=== PATIENT | female | born 2000 | race Caucasian/White ===

== ENCOUNTER 2020-04-30 02:32 | Emergency (ER) | payer OTHER ==
[2020-04-30 02:44] VITALS: BP 111/72; PULSE 95; RESP 18; TEMP 100.1
[2020-04-30 03:17] LABS: Appearance,Urine Turbid (Clear); Bacteria,Urine Occasional /hpf; Bilirubin,Urine 1+ (Negative); Blood,Urine Large (Negative); Color,Urine Dark Brown; Glucose,Urine (UA) Negative (Negative); Ketones,Urine Negative (Negative); Leukocyte Esterase,Urine Large (Negative); Mucus,Urine Few /hpf; Nitrite,Urine Positive (Negative); Protein,Urine 2+ (Negative); RBC,Urine >182 /hpf (0-5); Squamous Epithelial Cell,Urine 2 /hpf (0-4); WBC,Urine >182 /hpf (0-5)
[2020-04-30] MEDS ORDERED: NITROFURANTOIN MONOHYD/M-CRYST 100 MG CAP PO STA (03:38)
[2020-04-30] MEDS ORDERED: CEPHALEXIN 500MG STARTER PACK 4 CAP BTL PO STA (03:39)
--- NOTE | 2020-04-30 03:42 | ED ---
Female Urogenital HPI - General Chief complaint: Urogenital Stated complaint: UTI Time Seen by Provider: 04/30/20 02:55 Source: patient Mode of arrival: ambulatory Limitations: no limitations - History of Present Illness Initial comments: Daniella a previously healthy 19-year-old female presents the ER today via private vehicle for evaluation of 3 days of dysuria, urinary frequency and low grade fever. Patient denies any history of recurrent UTIs. Denies any concern for sexual transmitted infection or . States she's been taking [id number] Azo for symptoms of some improvement but her fever persists which prompted her to come the ER today. - Related Data Previous Rx's Medication Instructions Recorded Cephalexin [Keflex] 500 mg PO Q6HR 7 Days #28 cap 04/30/20 Allergies Allergy/AdvReac Type Severity Reaction Status Date / Time No Known Allergies Allergy Verified 04/30/20 02:44 Review of Systems ROS Statement: Those systems with pertinent positive or pertinent negative responses have been documented in the HPI. ROS Other: All systems not noted in ROS Statement are negative. Past Medical History Past Medical History: No Reported History History of Any Multi-Drug Resistant Organisms: None Reported Past Surgical History: No Surgical Hx Reported Past Psychological History: No Psychological Hx Reported Smoking Status: Never smoker Past Alcohol Use History: Occasional Past Drug Use History: None Reported General Exam - General Exam Comments Initial Comments: Physical Exam GENERAL: Patient is well-developed and well-nourished. Patient is nontoxic and well-hydrated and is in no distress. HENT: Normocephalic, Atraumatic. EYES: PERRL, EOMI PULMONARY: Unlabored respirations. CARDIOVASCULAR: RRR Warm and well perfused extremities ABDOMEN: Non-distended SKIN: No rashes or bruising : Deferred NEUROLOGIC: Alert and oriented Normal speech Normal gait MUSCULOSKELETAL: Moving all extremities with no apparent injury PSYCHIATRIC: No SI/HI Limitations: no limitations Course Vital Signs 04/30/20 02:39 Temperature 100.1 F H Pulse Rate 95 Respiratory 18 Rate Blood Pressure 111/72 O2 Sat by Pulse 99 Oximetry Medical Decision Making - Medical Decision Making the patient was seen and evaluated history is obtained from patient Patient's tolerating oral intake drinking water here in the ER declined an IV agreeable to urinalysis with plan for antibiotics She does have a fever and flank pain but is well-appearing does not appear septic Urinalysis confirms a urinary tract infection not First dose of Keflex given in the ER patient prescribed 7 days of Keflex 500 4 times daily - Lab Data Lab Results 04/30/20 04/30/20 Range/Units 02:50 02:54 Urine Color Dark Brown Urine Appearance Turbid H (Clear) Urine pH 6.0 (5.0-8.0) Ur Specific [place] 1.020 (1.001-1.035) Urine Protein 2+ H (Negative) Urine Glucose (UA) Negative (Negative) Urine Ketones Negative (Negative) Urine Blood Large H (Negative) Urine Nitrite Positive H (Negative) Urine Bilirubin 1+ H (Negative) Urine Urobilinogen 3.0 (<2.0) mg/dL Ur Leukocyte Esterase Large H (Negative) Urine RBC >182 H (0-5) /hpf Urine WBC >182 H (0-5) /hpf Urine WBC Clumps Many H (None) /hpf Ur Squamous Epith Cells 2 (0-4) /hpf Urine Bacteria Occasional H (None) /hpf Urine Mucus Few H (None) /hpf Urine HCG, Qual Not Detected (Not Detectd) Disposition Clinical Impression: Urinary tract infection Disposition: HOME SELF-CARE Condition: Stable Additional Instructions: As we discussed you have a urinary tract infection You will be prescribed Keflex, take it every 6h for 7 days Take all of the antibiotics, even if you are feeling better You can continue taking Azo for symptoms Drink plenty of fluids Return to the ER if you feel any worse, have a fever that wont break with fluids and tylenol/motrin, if you're vomiting and cant keep down any antibiotics or fluids Prescriptions: Cephalexin [Keflex] 500 mg PO Q6HR 7 Days #28 cap Is patient prescribed a controlled substance at d/c from ED?: No Referrals: None,Stated [Primary Care Provider] - 1-2 days
== END 2020-04-30 03:47 | disposition home or self-care (01) ==
LOC: EC 02:32
DX: N39.0 Urinary tract infection, site not specified (principal)
CPT/HCPCS: 81001; 81025; 87086; 99283

== ENCOUNTER 2021-07-20 22:56 | Emergency (ER) | payer OTHER ==
[2021-07-20 23:01] VITALS: BP 112/73; PULSE 90; RESP 20; TEMP 98.1
[2021-07-20] MEDS ORDERED: ACETAMINOPHEN TAB 500 MG TAB PO STA (23:12)
[2021-07-20] MEDS ORDERED: SODIUM CHLORIDE 0.9% 500 ML 500 ML IV ONE (23:12)
--- NOTE | 2021-07-20 23:13 | ED ---
Female Urogenital HPI - General Chief complaint: Abdominal Pain Stated complaint: Abdominal Cramping, 12wks pgt Time Seen by Provider: 07/20/21 23:11 Source: patient, RN notes reviewed, old records reviewed Mode of arrival: ambulatory Limitations: no limitations - History of Present Illness Initial comments: This is a 20-year-old female to the emergency department for evaluation with a positive currently. Patient is complaining of abdominal pain recently started 2 hours prior to ER visit. Patient states the pain is crampy in nature and significant. Has not had pain like this prior denies any vaginal bleeding other complaints. MD Complaint: pelvic pain -: days(s) Location: suprapubic Radiation: suprapubic Severity: mild Severity scale (1-10): 3 Quality: cramping Consistency: constant Improves with: none Worsens with: none Last Menstrual Period: 04/29/21 Patient : Yes Associated Symptoms: abdominal pain - Related Data Previous Rx's Medication Instructions Recorded cephALEXin [Keflex] 500 mg PO Q6HR 7 Days #28 cap 04/30/20 Allergies Allergy/AdvReac Type Severity Reaction Status Date / Time No Known Allergies Allergy Verified 07/20/21 23:00 Review of Systems ROS Statement: Those systems with pertinent positive or pertinent negative responses have been documented in the HPI. ROS Other: All systems not noted in ROS Statement are negative. Past Medical History Past Medical History: No Reported History History of Any Multi-Drug Resistant Organisms: None Reported Past Surgical History: No Surgical Hx Reported Past Psychological History: No Psychological Hx Reported Smoking Status: Never smoker Past Alcohol Use History: Occasional Past Drug Use History: None Reported General Exam Limitations: no limitations General appearance: alert, in no apparent distress Head exam: Present: atraumatic, normocephalic, normal inspection Eye exam: Present: normal appearance, PERRL, EOMI. Absent: scleral icterus, conjunctival injection, periorbital swelling ENT exam: Present: normal exam, mucous membranes moist Neck exam: Present: normal inspection. Absent: tenderness, meningismus, lymphadenopathy Respiratory exam: Present: normal lung sounds bilaterally. Absent: respiratory distress, wheezes, rales, rhonchi, stridor Cardiovascular Exam: Present: regular rate, normal rhythm, normal heart sounds. Absent: systolic murmur, diastolic murmur, rubs, gallop, clicks GI/Abdominal exam: Present: soft, tenderness ((Pubic), normal bowel sounds. Absent: distended, guarding, rebound, rigid Extremities exam: Present: normal inspection, full ROM, normal capillary refill. Absent: tenderness, pedal edema, joint swelling, calf tenderness Back exam: Present: normal inspection Neurological exam: Present: alert, oriented X3, CN II-XII intact Psychiatric exam: Present: normal affect, normal mood Skin exam: Present: warm, dry, intact, normal color. Absent: rash Course Vital Signs 07/20/21 22:58 Temperature 98.1 F Pulse Rate 90 Respiratory 20 Rate Blood Pressure 112/73 O2 Sat by Pulse 99 Oximetry - Reevaluation(s) Reevaluation #1: Medical record is reviewed Symptoms improved here in the ER Patient informed results and questions answered Medical Decision Making - Medical Decision Making 20 female with abdominal pain affecting . Patient has ultrasound showing IUP, no bleeding. Patient can be discharged home - Lab Data Result diagrams: 07/20/21 23:20 07/20/21 23:20 Lab Results 07/20/21 07/20/21 07/20/21 Range/Units 23:18 23:18 23:20 WBC 10.6 (3.8-10.6) k/uL RBC 3.68 L (3.80-5.40) m/uL Hgb 11.9 (11.4-16.0) gm/dL Hct 33.4 L (34.0-46.0) % MCV 90.8 (80.0-100.0) fL MCH 32.4 (25.0-35.0) pg MCHC 35.7 (31.0-37.0) g/dL RDW 12.1 (11.5-15.5) % Plt Count 230 (150-450) k/uL MPV 8.0 Neutrophils % 64 % Lymphocytes % 27 % Monocytes % 6 % Eosinophils % 1 % Basophils % 1 % Neutrophils # 6.8 (1.3-7.7) k/uL Lymphocytes # 2.9 (1.0-4.8) k/uL Monocytes # 0.6 (0-1.0) k/uL Eosinophils # 0.1 (0-0.7) k/uL Basophils # 0.1 (0-0.2) k/uL PT (9.0-12.0) sec INR (<1.2) APTT (22.0-30.0) sec Sodium (137-145) mmol/L Potassium (3.5-5.1) mmol/L Chloride (98-107) mmol/L Carbon Dioxide (22-30) mmol/L Anion Gap mmol/L BUN (7-17) mg/dL Creatinine (0.52-1.04) mg/dL Est GFR (CKD-EPI)AfAm (>60 ml/min/1.73 sqM) Est GFR (CKD-EPI)NonAf (>60 ml/min/1.73 sqM) Glucose (74-99) mg/dL Calcium (8.4-10.2) mg/dL HCG, Quant mIU/mL Urine Color Yellow Urine Appearance Clear (Clear) Urine pH 5.5 (5.0-8.0) Ur Specific [place] 1.022 (1.001-1.035) Urine Protein Trace H (Negative) Urine Glucose (UA) Negative (Negative) Urine Ketones Negative (Negative) Urine Blood Negative (Negative) Urine Nitrite Negative (Negative) Urine Bilirubin Negative (Negative) Urine Urobilinogen <2.0 (<2.0) mg/dL Ur Leukocyte Esterase Negative (Negative) Chlamydia Source Urine Chlamydia DNA (PCR) Negative (Neg,Equiv) N. gonorrhoeae Source Urine N.gonorrhoeae DNA Probe Negative (Neg,Equiv) Blood Type Blood Type Recheck Bld Type Recheck Status 07/20/21 07/20/21 07/20/21 Range/Units 23:20 23:20 23:20 WBC (3.8-10.6) k/uL RBC (3.80-5.40) m/uL Hgb (11.4-16.0) gm/dL Hct (34.0-46.0) % MCV (80.0-100.0) fL MCH (25.0-35.0) pg MCHC (31.0-37.0) g/dL RDW (11.5-15.5) % Plt Count (150-450) k/uL MPV Neutrophils % % Lymphocytes % % Monocytes % % Eosinophils % % Basophils % % Neutrophils # (1.3-7.7) k/uL Lymphocytes # (1.0-4.8) k/uL Monocytes # (0-1.0) k/uL Eosinophils # (0-0.7) k/uL Basophils # (0-0.2) k/uL PT 9.9 (9.0-12.0) sec INR 0.9 (<1.2) APTT 23.7 (22.0-30.0) sec Sodium 134 L (137-145) mmol/L Potassium 3.7 (3.5-5.1) mmol/L Chloride 107 (98-107) mmol/L Carbon Dioxide 21 L (22-30) mmol/L Anion Gap 6 mmol/L BUN 9 (7-17) mg/dL Creatinine 0.50 L (0.52-1.04) mg/dL Est GFR (CKD-EPI)AfAm >90 (>60 ml/min/1.73 sqM) Est GFR (CKD-EPI)NonAf >90 (>60 ml/min/1.73 sqM) Glucose 94 (74-99) mg/dL Calcium 9.1 (8.4-10.2) mg/dL HCG, Quant 02565.6 mIU/mL Urine Color Urine Appearance (Clear) Urine pH (5.0-8.0) Ur Specific [place] (1.001-1.035) Urine Protein (Negative) Urine Glucose (UA) (Negative) Urine Ketones (Negative) Urine Blood (Negative) Urine Nitrite (Negative) Urine Bilirubin (Negative) Urine Urobilinogen (<2.0) mg/dL Ur Leukocyte Esterase (Negative) Chlamydia Source Chlamydia DNA (PCR) (Neg,Equiv) N. gonorrhoeae Source N.gonorrhoeae DNA Probe (Neg,Equiv) Blood Type A Positive Blood Type Recheck No Previous Record Bld Type Recheck Status [facility] ONLY Disposition Clinical Impression: Abdominal pain, Abdominal pain affecting Disposition: HOME SELF-CARE Condition: Good Instructions (If sedation given, give patient instructions): Abdominal Pain in (ED) Is patient prescribed a controlled substance at d/c from ED?: No Referrals: None,Stated [Primary Care Provider] - 1-2 days
[2021-07-20 23:44] LABS: Basophils # (A) 0.1 k/uL (0-0.2); Basophils % (A) 1 %; Eosinophils # (A) 0.1 k/uL (0-0.7); Eosinophils % (A) 1 %; HCT 33.4 % (34.0-46.0); HGB 11.9 gm/dL (11.4-16.0); Lymphocytes # (A) 2.9 k/uL (1.0-4.8); Lymphocytes % (A) 27 %; MCH 32.4 pg (25.0-35.0); MCHC 35.7 g/dL (31.0-37.0); MCV 90.8 fL (80.0-100.0); Monocytes # (A) 0.6 k/uL (0-1.0); Monocytes % (A) 6 %; Neutrophils # (A) 6.8 k/uL (1.3-7.7); Neutrophils % (A) 64 %; Platelet Count 230 k/uL (150-450); RBC 3.68 m/uL (3.80-5.40); RDW 12.1 % (11.5-15.5); WBC 10.6 k/uL (3.8-10.6)
[2021-07-20 23:48] LABS: Appearance,Urine Clear (Clear); Bilirubin,Urine Negative (Negative); Blood,Urine Negative (Negative); Color,Urine Yellow; Glucose,Urine (UA) Negative (Negative); Ketones,Urine Negative (Negative); Leukocyte Esterase,Urine Negative (Negative); Nitrite,Urine Negative (Negative); PH, Urine 5.5 (5.0-8.0); Protein,Urine Trace (Negative); Specific Gravity,Urine 1.022 (1.001-1.035); Urobilinogen,Urine <2.0 mg/dL (<2.0)
[2021-07-20 23:51] LABS: African American GFR (CKD) >90 (>60 ml/min/1.73 sqM); Anion Gap 6 mmol/L; Blood Urea Nitrogen 9 mg/dL (7-17); Calcium 9.1 mg/dL (8.4-10.2); Carbon Dioxide 21 mmol/L (22-30); Chloride 107 mmol/L (98-107); Glucose 94 mg/dL (74-99); Non-African American GFR(CKD) >90 (>60 ml/min/1.73 sqM); Potassium 3.7 mmol/L (3.5-5.1); Sodium 134 mmol/L (137-145)
[2021-07-20 23:55] LABS: INR 0.9 (<1.2); Partial Thromboplastin Time 23.7 sec (22.0-30.0); Prothrombin Time 9.9 sec (9.0-12.0)
--- NOTE | 2021-07-21 00:27 | US ---
EXAMINATION TYPE: Transabdominal DATE OF EXAM: 07/21/2021 12:05 AM COMPARISON: NONE CLINICAL HISTORY: pain. EXAM PERFORMED: EXAM MEASUREMENTS: GESTATIONAL AGE / DATING Physician Established: Not yet established Dates by LMP: (11 weeks/5 days) EDC: 02-03-22 Dates by First Scan: No previous this is first scan Dates by Current Scan for: (12 weeks/0 days) EDC: 02-01-22 MATERNAL ANATOMY Uterus: 9.2 x 8.9 x 9.2 Right Ovary: obscured by overlying bowel/increased uterine size Left Ovary: obscured by overlying bowel/increased uterine size Post CDS / Adnexa: wnl Presence of free fluid: no Presence of subchorionic bleed: no GESTATION / SURVEY CRL: 5.4 (12 weeks/0 days) Yolk Sac (normal less than 6mm): not seen Heart Rate: 146 bpm Rhythm: Normal IUP: Viable IUP Nuchal Translucency 10-14wks (normal less than 3mm): 1mm Age Appropriate Anatomy Cord Insertion: Visualized Limbs: Visualized Calvarium: Visualized Date of LMP: 04-29-21 Beta HcG (if available): Not available at this time IMPRESSION: The ultrasound gestational age is 12 weeks. No complicating process seen.
[2021-07-21 01:16] LABS: HCG,Quantitative Serum 84194.6 mIU/mL
[2021-07-23 16:17] LABS: C. trachomatis,PCR Negative (Neg,Equiv); Chlamydia trachomatis Source Urine; N. gonorrhoeae,PCR Negative (Neg,Equiv); Neisseria Source Urine
== END 2021-07-21 01:03 | disposition home or self-care (01) ==
LOC: EC 22:56
DX: O26.891 Other specified pregnancy related conditions, first trimester (principal); R10.2 Pelvic and perineal pain; Z3A.12 12 weeks gestation of pregnancy
CPT/HCPCS: 36415; 76801; 76813; 80048; 81003; 84702; 85025; 85610; 85730; 86900; 86901; 87491; 87591; 96360; 96361; 99284

== ENCOUNTER 2022-02-04 02:54 | Inpatient (IN) | payer OTHER ==
[2022-02-04] MEDS ORDERED: LIDOCAINE 0.5% (PF) 5 MG/ML (50 ML SDV) SQ PRN (03:13)
[2022-02-04] MEDS ORDERED: OXYTOCIN 10 UNIT/ML 1 ML VIAL IM PRN (03:13)
[2022-02-04] MEDS ORDERED: METHYLERGONOVINE 0.2 MG/ML 1 ML AMP IM PRN (03:13)
[2022-02-04] MEDS ORDERED: TERBUTALINE 1 MG/ML VIAL SQ PRN (03:13)
[2022-02-04] MEDS ORDERED: CARBOPROST TROMETHAMINE 250 MCG/ML 1 ML AMP IM PRN (03:13)
[2022-02-04] MEDS ORDERED: OXYTOCIN 30 UNITS/500 ML NS 30 UNIT in SALINE 1 500ML.BAG IV SCH ×2 (03:15→05:45)
[2022-02-04] MEDS: LACTATED RINGERS 1,000 ML IV SCH ×2 (03:23→13:16)
[2022-02-04 03:47] LABS: Basophils # (A) 0.1 k/uL (0-0.2); Basophils % (A) 1 %; Eosinophils # (A) 0.1 k/uL (0-0.7); Eosinophils % (A) 1 %; HCT 36.1 % (34.0-46.0); HGB 12.1 gm/dL (11.4-16.0); Lymphocytes # (A) 3.3 k/uL (1.0-4.8); Lymphocytes % (A) 26 %; MCH 31.7 pg (25.0-35.0); MCHC 33.4 g/dL (31.0-37.0); MCV 94.9 fL (80.0-100.0); Mean Platelet Volume 9.7; Monocytes # (A) 1.1 k/uL (0-1.0); Monocytes % (A) 9 %; Neutrophils % (A) 63 %; Platelet Count 183 k/uL (150-450); RBC 3.81 m/uL (3.80-5.40); RDW 12.7 % (11.5-15.5); WBC 12.8 k/uL (3.8-10.6)
[2022-02-04] MEDS ORDERED: PENICILLIN G POTASSIUM 5,000,000 UNIT in DEXTROSE 5% IN WATER 100 ML IVPB ONE ×2 (05:00)
[2022-02-04] MEDS ORDERED: SIMETHICONE 80 MG CHEWABLE PO PRN (05:42)
[2022-02-04] MEDS ORDERED: HYDROcodone/APAP 5-325MG 1 EACH TAB PO PRN (05:42)
[2022-02-04] MEDS ORDERED: LANOLIN CREAM 5 GM TUBE TOPICAL PRN (05:42)
[2022-02-04] MEDS ORDERED: HYDROcodone/APAP 7.5-325MG 1 EACH TAB PO PRN (05:42)
[2022-02-04] MEDS ORDERED: diphenhydrAMINE 25 MG CAP PO PRN (05:42)
[2022-02-04] MEDS ORDERED: ZOLPIDEM 5 MG TAB PO PRN (05:42)
[2022-02-04] MEDS ORDERED: HYDROCORTISONE 2.5% RECTAL CREAM 30 GM TUBE RECTAL PRN (05:42)
[2022-02-04] MEDS ORDERED: BENZOCAINE/MENTHOL SPRAY 1 GM/SPRAY AEROSOL TOPICAL PRN (05:42)
[2022-02-04] MEDS ORDERED: diphenhydrAMINE 50 MG CAP PO PRN (05:42)
[2022-02-04] MEDS ORDERED: diphenhydrAMINE 50 MG/ML 1 ML VIAL IVP PRN ×2 (05:42)
[2022-02-04] MEDS ORDERED: ACETAMINOPHEN TAB 325 MG TAB PO PRN (05:42)
--- NOTE | 2022-02-04 05:48 | P.HPOB ---
History of Present Illness H&P Date: 02/04/22 Chief Complaint: 40 and one sevenths weeks, active labor, spontaneous rupture of membranes the patient is a 21-year-old 1 para 0 admitted at 40 and one sevenths weeks as established by last menstrual period and confirmed by 11 week ultrasound. She is admitted in active labor with documented spontaneous rupture of membranes for clear fluid. Her has been entirely uncomplicated to this point. All signs reassuring with heart rate tracing that is category 1. Group B strep status is positive. Obstetrical history: 1 para 0 with current statistics listed in history present illness. EDC of 02/03/2022 was established by last menstrual period and confirmed by 11 week ultrasound. Laboratory workup demonstrates a blood type of A+ with a negative antibody screen. Rubella status is immune. The remainder of the laboratory workup was within normal limits. One hour Glucola was normal and group B strep status is positive. Gynecologic history: Unremarkable with no history of any infections to include STDs. Review of Systems review of systems is confined to history of present illness. Past Medical History Past Medical History: No Reported History History of Any Multi-Drug Resistant Organisms: None Reported Past Surgical History: No Surgical Hx Reported Past Anesthesia/Blood Transfusion Reactions: No Reported Reaction Past Psychological History: No Psychological Hx Reported Smoking Status: Never smoker Past Alcohol Use History: Occasional Past Drug Use History: None Reported Additional Drug Use History / Comment(s): Pt reports former vaping Medications and Allergies Home Medications Medication Instructions Recorded Confirmed Type Aspirin 81 mg PO HS 02/03/22 02/04/22 History Vit No.179/Iron/Folic 1 tab PO HS 02/03/22 02/04/22 History [ Tablet] Allergies Allergy/AdvReac Type Severity Reaction Status Date / Time No Known Allergies Allergy Verified 02/03/22 07:59 Exam Vital Signs Temp Pulse Resp BP Pulse Ox 02/04/22 03:03 98.9 F 80 20 163/65 96 Intake and Output 02/03/22 02/03/22 02/04/22 14:59 22:59 06:59 Other: Weight 78.471 kg in general, this is a well-developed, well-nourished white female in no acute distress. Her heart has a regular rhythm and rate without murmur. Her lungs are clear to auscultation bilaterally in all howard. Her abdomen is gravid, nondistended, is soft, nontender, without any palpable masses aside from uterine fundus. Her extremities are without any cyanosis, clubbing, or edema and are nontender to palpation bilaterally. Digital cervical examination presentation demonstrated her cervix to be 6-7 cm dilated, 90% effaced, the vertex in presentation at -1 station. Spontaneous rupture of membranes is confirmed. Results Result Diagrams: 02/04/22 03:28 Abnormal Lab Results - Last 24 Hours (Table) 02/04/22 Range/Units 03:28 WBC 12.8 H (3.8-10.6) k/uL Neutrophils # 8.0 H (1.3-7.7) k/uL Monocytes # 1.1 H (0-1.0) k/uL Assessment and Plan (1) Spontaneous rupture of membranes Current Visit: Yes Status: Acute Code(s): SKJ3224 - SNOMED Code(s): 432613030 (2) Group B streptococcal infection in Current Visit: Yes Status: Acute Code(s): O98.819 - OTH MATERNAL INFEC/PARASTC DISEASES COMP PREG, UNSP TRI; B95.1 - STREPTOCOCCUS, GROUP B, CAUSING DISEASES CLASSD ELSWHR SNOMED Code(s): 638112261 (3) Active labor at term Current Visit: Yes Status: Acute Code(s): AVQ1135 - SNOMED Code(s): 19072732 Plan: the patient is admitted for active management of labor. She is a good candidate for either IV or epidural analgesia but she is declining both this time. She will close maternal and surveillance and expectant management will be practiced.
--- NOTE | 2022-02-04 05:50 | P.PROBDLV ---
Vaginal Delivery Note - . Vaginal Delivery Note: the patient is a 21-year-old 1 para 0 admitted at 40 and one sevenths weeks by good dating parameters. She is admitted in active labor with spontaneous rupture of membranes with for clear fluid. Her has been entirely uncomplicated and group B strep status is positive. On labor and delivery, she had antibiotic prophylaxis started. She declined intervention with analgesics, either IV or formula epidural. She made fairly rapid progress through the remaining active phase of labor to complete and pushed fairly quickly to a normal spontaneous vaginal delivery of a viable 7 lbs. 15 oz. girl with Apgars of 8 at 1 minute and 9 at 5 minutes delivered in the direct occiput anterior position.the placenta was delivered spontaneously, intact, and grossly normal with a grossly normal three-vessel cord inserted approximate 3 cm from the margin of the placental disc. There was a small second-degree perineal laceration just left of midline which was repaired in standard fashion using 3-0 chromic catgut without difficulty. Estimated blood loss was approximately 250 mL. There are no complications. All sponge, instrument, needle counts were correct. Both mother and are resting comfortably in recovery.
[2022-02-04] MEDS ORDERED: METHYLERGONOVINE 0.2 MG/ML 1 ML AMP IM ONE (05:53)
[2022-02-04] MEDS: SENNOSIDES-DOCUSATE SODIUM 1 EACH TAB PO SCH ×2 (09:00→20:05)
[2022-02-04] MEDS ORDERED: PENICILLIN G POTASSIUM 2,500,000 UNIT in DEXTROSE 5% IN WATER 100 ML IVPB SCH ×2 (09:00)
[2022-02-04] MEDS: IBUPROFEN 600 MG TAB PO PRN (19:48)
[2022-02-05 07:20] LABS: Basophils % (A) 0 %; Eosinophils # (A) 0.1 k/uL (0-0.7); Eosinophils % (A) 1 %; HCT 28.1 % (34.0-46.0); Lymphocytes # (A) 2.1 k/uL (1.0-4.8); Lymphocytes % (A) 20 %; MCH 32.8 pg (25.0-35.0); MCHC 33.7 g/dL (31.0-37.0); MCV 97.3 fL (80.0-100.0); Monocytes # (A) 0.7 k/uL (0-1.0); Monocytes % (A) 7 %; Neutrophils # (A) 7.3 k/uL (1.3-7.7); Neutrophils % (A) 70 %; Platelet Count 136 k/uL (150-450); RBC 2.89 m/uL (3.80-5.40); RDW 13.2 % (11.5-15.5); WBC 10.6 k/uL (3.8-10.6)
[2022-02-05 07:21] LABS: HGB 9.5 gm/dL (11.4-16.0)
--- NOTE | 2022-02-05 08:37 | P.PNOBGVD ---
Subjective - Subjective Patient reports: Reports appetite normal, Reports voiding normally, Reports pain well controlled, Reports ambulating normally : doing well, nursing well Objective - Latest Vital Signs Latest vital signs: Vital Signs Temp Pulse Resp BP Pulse Ox 02/05/22 04:00 97.9 F 73 14 107/70 98 02/05/22 00:00 98.3 F 96 14 123/79 98 02/04/22 20:00 98.0 F 104 H 14 107/71 98 02/04/22 15:16 99.3 F 103 H 18 110/70 98 02/04/22 12:00 98.7 F 99 16 121/75 98 Intake and Output 02/04/22 02/05/22 02/05/22 22:59 06:59 14:59 Other: # Voids 1 2 - Exam Extremities: Present: normal Abdomen: Present: normal appearance, soft Uterus: Present: normal, firm (the uterine fundus as tonic and nontender below the umbilicus.) - Labs Labs: Abnormal Lab Results - Last 24 Hours (Table) 02/05/22 Range/Units 06:00 RBC 2.89 L (3.80-5.40) m/uL Hgb 9.5 L D (11.4-16.0) gm/dL Hct 28.1 L (34.0-46.0) % Plt Count 136 L (150-450) k/uL Assessment and Plan (1) Spontaneous rupture of membranes Current Visit: Yes Status: Acute Code(s): FFE1143 - SNOMED Code(s): 857007065 (2) Group B streptococcal infection in Current Visit: Yes Status: Acute Code(s): O98.819 - OTH MATERNAL INFEC/PARASTC DISEASES COMP PREG, UNSP TRI; B95.1 - STREPTOCOCCUS, GROUP B, CAUSING DISEASES CLASSD ELSWHR SNOMED Code(s): 894805051 (3) Active labor at term Current Visit: Yes Status: Acute Code(s): XLE2864 - SNOMED Code(s): 35857383 (4) Normal spontaneous vaginal delivery Current Visit: Yes Status: Acute Code(s): O80 - ENCOUNTER FOR FULL-TERM UNCOMPLICATED DELIVERY SNOMED Code(s): 08400735 Plan: continue routine care. The infant is required to stay for 48 hours of observation having not been adequately prophylaxed for group B strep with antibiotics. As a result, the patient will remain in the hospital and be discharged home tomorrow morning.
[2022-02-05] MEDS: IBUPROFEN 600 MG TAB PO PRN (08:42)
[2022-02-05] MEDS: SENNOSIDES-DOCUSATE SODIUM 1 EACH TAB PO SCH ×2 (09:18→21:54)
--- NOTE | 2022-02-06 08:45 | P.DS ---
Providers Date of admission: 02/04/22 03:17 Expected date of discharge: 02/06/22 Attending physician: Kodi Fonesca Primary care physician: Stated None - Discharge Diagnosis(es) (1) Spontaneous rupture of membranes Current Visit: Yes Status: Acute (2) Group B streptococcal infection in Current Visit: Yes Status: Acute (3) Active labor at term Current Visit: Yes Status: Acute (4) Normal spontaneous vaginal delivery Current Visit: Yes Status: Acute Hospital Course: the patient is a 21-year-old 1 para 0 admitted at 40 and one sevenths weeks by good dating parameters perches admitted in active labor with all signs reassuring. Her was uncomplicated and group B strep status is positive. She did have antibiotic prophylaxis started but progressed very quickly through the active phase to complete and then pushed to a normal spontaneous vaginal delivery of a viable 7 lbs. 15 oz. baby girl with Apgars of 8 at 1 minute and 9 at 5 minutes. Her course was unremarkable with vital signs remaining stable and her temperature was afebrile throughout. She was deemed stable for discharge on day #2 as the remained in the hospital for observation secondary to inadequate antibiotic prophylaxis for group B strep. She was discharged home and asked to follow-up in 6 weeks' time routinely. Discharge instructions included calling for any significantly increased bleeding or foul-smelling lochia, significantly increased fever abdominal pain, perineal complaints, breast complaints, or anything also concerned her. She was additionally instructed to have nothing in the vagina for at least 6 weeks time to include intercourse. She understood her instructions and agrees to follow up as noted above. Discharge medications included continued vitamins as she has opted to breast-feed. She was otherwise to use [id number] analgesic pain medications. Maternal blood type is A+ and rubella status is immune. Procedures: #1. Normal spontaneous vaginal delivery #2. Perineal laceration repair Patient Condition at Discharge: Stable Plan - Discharge Summary New Discharge Prescriptions: No Action Vit No.179/Iron/Folic [ Tablet] 1 tab PO HS Aspirin 81 mg PO HS Discharge Medication List Aspirin 81 mg PO HS 02/03/22 [History] Vit No.179/Iron/Folic [ Tablet] 1 tab PO HS 02/03/22 [History] Follow up Appointment(s)/Referral(s): Kodi Fonseca MD [STAFF PHYSICIAN] - 6 Weeks Discharge Disposition: HOME SELF-CARE
[2022-02-06] MEDS: SENNOSIDES-DOCUSATE SODIUM 1 EACH TAB PO SCH (09:10)
[2022-02-06 10:38] VITALS: BP 115/69; PULSE 101; RESP 18; TEMP 98.6
== END 2022-02-06 09:45 | disposition home or self-care (01) | DRG 807 ==
LOC: FBPOP 02:54 → 4FBP 03:17
PROVIDERS: ADMIT Obstetrics & Gynecology; ATTEND Obstetrics & Gynecology
PROC: 10E0XZZ Delivery of Products of Conception, External Approach (ICD-10-PCS; principal; 2022-02-04)
PROC: 0KQM0ZZ Repair Perineum Muscle, Open Approach (ICD-10-PCS; 2022-02-04)
PROC: 4A0HXCZ Measurement of Products of Conception, Cardiac Rate, External Approach (ICD-10-PCS; 2022-02-04)
DX: O42.92 Full-term premature rupture of membranes, unspecified as to length of time between rupture and onset of labor (principal); Z37.0 Single live birth; O70.1 Second degree perineal laceration during delivery; O62.3 Precipitate labor; O99.824 Streptococcus B carrier state complicating childbirth; Z79.82 Long term (current) use of aspirin
CPT/HCPCS: 84112; 85025; 86850; 86900; 86901; 99213